=== PATIENT | female | born 1965 | race American Indian/Alaskan Native ===

== ENCOUNTER 2016-08-02 15:09 | Emergency (ER) | payer SELFPAY ==
[2016-08-02 15:37] VITALS: BP 121/75
--- NOTE | 2016-08-02 18:27 | Emergency Department Report ---
ED Extremity Problem HPI - General Chief complaint: Extremity Injury, Lower Stated complaint: LFT FOOT PAIN Time Seen by Provider: 08/02/16 18:01 Source: patient Mode of arrival: Ambulatory Limitations: No Limitations - History of Present Illness Initial comments: PT states she fell at [employer] last month. PT states she was walking out of the store and because it was raining, the ground was wet. PT states she slipped and her Left leg/ foot went behind her. PT states she thought she would be okay and did not seek medical care at the time of injury, but she is still having L foot pain and swelling. PT states the pain is usually around a 2/10 but it does increase at times, and seems to be worse at night. PT states she has tried multiple home remedies (soaks, elevation, NSAIDs, but the pain does not resolve) PT states she has to walk in flip flops because the pressure of wearing shoes increases pain. PT states she was walking at work and she opened a door and the door scraped over her R small toe. PT states her toe will occasionally swell but she does not think she needs Xrs. Complaint: extremity pain Onset/Timin -: month(s) Location: left, lower extremity, other (mid foot ) Severity scale (0 -10): 7 (at the worst, 2/10 currently) Quality: aching, sharp Consistency: constant Improves with: elevation, medication, rest Worsens with: weight bearing, walking, other (at night ) - Related Data Previous Rx's Medication Instructions Recorded Last Taken Type Ibuprofen [Motrin] 600 mg PO Q8H PRN #15 tablet 08/02/16 Unknown Rx Allergies Allergy/AdvReac Type Severity Reaction Status Date / Time No Known Allergies Allergy Unverified 08/02/16 15:32 ED Review of Systems ROS: Stated complaint: LFT FOOT PAIN Other details as noted in HPI Comment: All other systems reviewed and negative Cardiovascular: edema (L foot ) Musculoskeletal: as per HPI Skin: denies: change in color Neurological: denies: abnormal gait ED Past Medical Hx - Past Medical History Previous Medical History?: No - Surgical History Past Surgical History?: Yes Additional Surgical History: 1989 - Social History Smoking Status: Never Smoker Substance Use Type: Alcohol, Non Opiate Pain - Medications Home Medications: Home Medications Medication Instructions Recorded Confirmed Last Taken Type Ibuprofen [Motrin] 600 mg PO Q8H PRN #15 tablet 08/02/16 Unknown Rx ED Physical Exam - General Limitations: No Limitations General appearance: alert, in no apparent distress, obese - Head Head exam: Present: atraumatic, normocephalic, normal inspection - Eye Eye exam: Present: normal appearance, EOMI. Absent: conjunctival injection - ENT ENT exam: Present: normal exam, normal external ear exam - Neck Neck exam: Present: normal inspection, full ROM - Respiratory Respiratory exam: Present: normal lung sounds bilaterally. Absent: respiratory distress - Cardiovascular Cardiovascular Exam: Present: regular rate, normal rhythm - Extremities Exam Extremities exam: Present: normal capillary refill, pedal edema - Expanded Lower Extremity Exam Left Lower Leg exam: Present: normal inspection. Absent: ecchymosis, deformity Ankle exam: Present: normal inspection, full ROM. Absent: tenderness, swelling , ecchymosis, deformity Foot/Toe exam: Present: full ROM, tenderness (mid dorsal foot ), swelling (mid dorsal foot ). Absent: ecchymosis, deformity, crepidus, dislocation, erythema, amputation, tenderness at base of 5th metatarsal, nail avulsion, subungual hematoma Neuro vascular tendon exam: Present: no vascular compromise. Absent: pulse deficit, abnormal cap refill Right Lower Leg exam: Present: normal inspection, full ROM. Absent: tenderness Ankle exam: Present: normal inspection, full ROM. Absent: tenderness Foot/Toe exam: Present: full ROM, swelling (mild swelling to R 5th toe). Absent : ecchymosis, deformity, dislocation, erythema, tenderness at base of 5th metatarsal, nail avulsion, subungual hematoma ED Course Vital Signs 08/02/16 15:32 Temperature 98.3 F Pulse Rate 87 Respiratory 20 Rate Blood Pressure 121/75 O2 Sat by Pulse 100 Oximetry - Reevaluation(s) Reevaluation #1: 08/02/16 18:45 PT aware of my interpretation of her XR. PT has no questions at this time. - Pulse Oximetry Interpretation Digit-Finger Initial Pulse Oximetry Readin Actions Taken: none ED Medical Decision Making - Radiology Data Radiology results: image reviewed interpreted by me: L foot - NAP - Differential Diagnosis fracture, contusion, strain, Critical Care Time: No Critical care attestation.: If time is entered above; I have spent that time in minutes in the direct care of this critically ill patient, excluding procedure time. ED Disposition Clinical Impression: Left foot pain, Edema of left foot Injury of left foot Qualifiers: Encounter type: initial encounter Qualified Code(s): S99.922A - Unspecified injury of left foot, initial encounter Disposition: DISCHARGED TO HOME OR SELFCARE Is pt being admited?: No Does the pt Need Aspirin: No Condition: Stable Instructions: Foot Sprain (ED), RICE Therapy (ED) Additional Instructions: Follow up with [facility]TH[facility] if your pain persists. Prescriptions: Ibuprofen [Motrin] 600 mg PO Q8H PRN #15 tablet PRN Reason: Pain Referrals: PRIMARY CARE, [Primary Care Provider] - 3-5 Days ENEDINA EID MD [Staff Physician] - 3-5 Days Time of Disposition: 19:01
--- NOTE | 2016-08-03 08:27 | XRay Report ---
LEFT FOOT: History: Foot pain. The bony architecture is intact. Bony alignment is normal. No soft tissue abnormalities are seen. The joint spaces appear preserved. IMPRESSION: Normal left foot.
== END 2016-08-02 19:23 | disposition home or self-care (01) ==
LOC: ED 15:09
DX: S99.922A Unspecified injury of left foot, initial encounter (principal); R22.42 Localized swelling, mass and lump, left lower limb; M79.672 Pain in left foot; W01.0XXA Fall on same level from slipping, tripping and stumbling without subsequent striking against object, initial encounter; Y93.89 Activity, other specified; Y99.9 Unspecified external cause status; Y92.89 Other specified places as the place of occurrence of the external cause
CPT/HCPCS: 99283